=== PATIENT | male | born 1980 | race Two or more races ===

== ENCOUNTER 2020-11-30 07:08 | Day surgery (SDC) | payer OTHER ==
[~2020-11-30 07:08] MED LIST: AVAPRO300 MG PO; OMEGA-31000 MG PO; PROPECIA1 MG PO
[2020-11-30] MEDS ORDERED: SURFAK240 M1 PO (13:01)
[2020-11-30] MEDS ORDERED: PERCOCET 5-3251 EACH PO (13:01)
[2020-11-30] MEDS ORDERED: NEURONTIN600 M1 PO (13:01)
[2020-11-30] MEDS ORDERED: POLY119PG PO (13:01)
== END 2020-11-30 17:29 | disposition home or self-care (01) ==
LOC: CIR.AMB 07:08
PROVIDERS: ATTEND Surgery
DX: K42.0 Umbilical hernia with obstruction, without gangrene (principal); K43.0 Incisional hernia with obstruction, without gangrene; Z20.822 Contact with and (suspected) exposure to COVID-19